=== PATIENT | female | born 1950 | race Caucasian/White ===

== ENCOUNTER → 2017-06-12 | Outpatient (CLI) | payer MEDICARE, OTHER ==
[~2017-06-12] MED LIST: ACAR50TA PO; ATOR10 PO; CALC-179 PO; CHRO200T2 PO; COQ1150C2 PO; DOCU250C PO; FISH1000 PO; GLUCTAB PO; LANTUSP SQ; LIOT25 PO; LISI10TA PO; POTA99TA12 PO; SYNT175T PO; VICTOZA; VITA10002 PO; VITA20002 PO; VITA400C70 PO
--- NOTE | 2017-06-12 09:53 | RADRPT ---
EXAM DATE/TIME: 06/12/2017 09:41 [place] COMPARISON: No previous studies available for comparison. INDICATIONS : Shortness of breath. MEDICAL HISTORY : Hypertension. Diabetes mellitus type II. Breast and uterine cancer. SURGICAL HISTORY : Lumpectomy. ENCOUNTER: Initial ACUITY: >1 year PAIN SCORE: 0/10 LOCATION: Bilateral chest FINDINGS: The cardiac silhouette is normal in transverse diameter. The lungs are free of acute parenchymal opac ity. No effusions are identified. [id number] is in place via right subclavian approach with its ti p in the superior vena cava. CONCLUSION: 1. No acute cardiopulmonary disease. Andrey Alford MD on June 12, 2017 at 9:51 Board Certified Radiologist. This report was verified electronically.
--- NOTE | 2017-06-12 19:01 | EKG ---
Date Performed: 06/12/2017 Time Performed: 09:27:38 PTAGE: 67 years EKG: Sinus rhythm . rSr'(V1) - probable normal variant Since previous tracing, no significant change noted Normal ECG PREVIOUS TRACING : 12/15/2015 13.13 DOCTOR: Julius Ch Interpretating Date/Time 06/12/2017 19:00:18
== END ==
LOC: HCAV 09:19
PROVIDERS: ATTEND Family Medicine
DX: R06.02 Shortness of breath (principal)
CPT/HCPCS: 71020; 93005